=== PATIENT | female | born 1960 | race Caucasian/White ===

== ENCOUNTER 2021-09-17 09:26 | Emergency (ER) | payer MEDICARE ==
[2021-09-17 09:34] VITALS: BP 155/80; PULSE 94; RESP 18; TEMP 97.9
--- NOTE | 2021-09-17 10:19 | ED ---
General Adult HPI - General Chief complaint: Recheck/Abnormal Lab/Rx Stated complaint: med refill Time Seen by Provider: 09/17/21 09:36 Source: patient, RN notes reviewed Mode of arrival: ambulatory Limitations: no limitations - History of Present Illness Initial comments: Patient presents for medication refill. Patient is a 61-year-old female who just moved to the area from [place] 2 weeks ago. She reports that while she was in the hospital in [place] she got 2 weeks of her medications but ran out. She is currently in the process of establishing primary care to get her medication refills. Patient requests a refill of her gabapentin, Lasix, pramipexole, pravastatin, insulin. Patient has no other complaints at this time including shortness of breath, chest pain, abdominal pain, nausea or vomiting, headache, or visual changes. - Related Data Home Medications Medication Instructions Recorded Confirmed Aspirin EC [Ecotrin Low Dose] 81 mg PO DAILY 09/17/21 09/17/21 Divalproex [Depakote] 500 mg PO BID 09/17/21 09/17/21 Furosemide [Lasix] 20 mg PO DAILY 09/17/21 09/17/21 Levothyroxine Sodium [Synthroid] 25 mcg PO DAILY 09/17/21 09/17/21 Melatonin 10 mg PO HS 09/17/21 09/17/21 Nitroglycerin Sl Tabs [Nitrostat] 0.4 mg SUBLINGUAL Q5M PRN 09/17/21 09/17/21 metFORMIN HCL [Glucophage] 1,000 mg PO BID 09/17/21 09/17/21 risperiDONE 1 mg PO HS 09/17/21 09/17/21 risperiDONE 4 mg PO BID 09/17/21 09/17/21 tiZANidine [Zanaflex] 2 mg PO TID 09/17/21 09/17/21 Previous Rx's Medication Instructions Recorded Gabapentin [Neurontin] 300 mg PO BID #14 cap 09/17/21 Insulin Glargine,Hum.rec.anlog 15 unit SQ HS #3 each 09/17/21 [Lantus Solostar Pen] Pantoprazole Sodium 40 mg PO DAILY #7 packet 09/17/21 Pramipexole [Mirapex] 1 mg PO HS #7 tab 09/17/21 Pravastatin Sodium [Pravachol] 10 mg PO HS #7 tab 09/17/21 Allergies Allergy/AdvReac Type Severity Reaction Status Date / Time Iodine and Iodide Containing Allergy Anaphylaxis Verified 09/17/21 09:58 Produc prochlorperazine Allergy Anaphylaxis Verified 09/17/21 09:58 [From Compazine] promethazine [From Phenergan] Allergy Anaphylaxis Verified 09/17/21 09:58 Review of Systems ROS Statement: Those systems with pertinent positive or pertinent negative responses have been documented in the HPI. ROS Other: All systems not noted in ROS Statement are negative. Past Medical History Past Medical History: Diabetes Mellitus History of Any Multi-Drug Resistant Organisms: None Reported Past Surgical History: Bariatric Surgery, Section, Joint Replacement Additional Past Surgical History / Comment(s): gastric bypass Past Psychological History: Bipolar, Depression Smoking Status: Never smoker Past Alcohol Use History: Occasional Past Drug Use History: None Reported General Exam Limitations: no limitations General appearance: alert, in no apparent distress Head exam: Present: atraumatic Eye exam: Present: normal appearance, PERRL, EOMI. Absent: scleral icterus, conjunctival injection ENT exam: Present: normal exam, mucous membranes moist Neck exam: Present: normal inspection, full ROM. Absent: tenderness Respiratory exam: Present: normal lung sounds bilaterally. Absent: respiratory distress, wheezes Cardiovascular Exam: Present: regular rate, normal rhythm, normal heart sounds GI/Abdominal exam: Present: soft, normal bowel sounds. Absent: distended, tenderness, guarding, rebound Course Vital Signs 09/17/21 09:27 Temperature 97.9 F Pulse Rate 94 Respiratory 18 Rate Blood Pressure 155/80 O2 Sat by Pulse 100 Oximetry Medical Decision Making - Medical Decision Making Vitals are stable. Requested medications or refills for a week. Directed her to follow-up with primary care. She will return to the emergency room for any worsening symptoms. Disposition Clinical Impression: Encounter for medication refill Disposition: HOME SELF-CARE Condition: Good Instructions (If sedation given, give patient instructions): Abdominal Pain (ED) Additional Instructions: Please follow up with primary care in 1-2 days. Return to the ER for any worsening symptoms. Prescriptions: Insulin Glargine,Hum.rec.anlog [Lantus Solostar Pen] 15 unit SQ HS #3 each Pramipexole [Mirapex] 1 mg PO HS #7 tab Gabapentin [Neurontin] 300 mg PO BID #14 cap Pantoprazole Sodium 40 mg PO DAILY #7 packet Pravastatin Sodium [Pravachol] 10 mg PO HS #7 tab Is patient prescribed a controlled substance at d/c from ED?: No Referrals: Hawk Kirk MD [STAFF PHYSICIAN] - 1-2 days Time of Disposition: 10:15
== END 2021-09-17 10:48 | disposition home or self-care (01) ==
LOC: EC 09:26
DX: Z76.0 Encounter for issue of repeat prescription (principal); E11.9 Type 2 diabetes mellitus without complications; F31.9 Bipolar disorder, unspecified; Z79.4 Long term (current) use of insulin; Z79.82 Long term (current) use of aspirin; Z79.84 Long term (current) use of oral hypoglycemic drugs; Z79.890 Hormone replacement therapy; Z79.899 Other long term (current) drug therapy
CPT/HCPCS: 99282